=== PATIENT | male | born 1965 | race Caucasian/White ===

== ENCOUNTER → 2017-02-09 | Outpatient (CLI) | payer OTHER ==
--- NOTE | ~2017-02-09 | MR11 ---
[facility] A Service of [facility] & [facility] RADIOLOGY TEXT RESULTS PATIENT: QUINN DAVIDSON LOCATION: [facility] : 69 UNIT #: [id number] AGE: [address]: Tk Lance MD SEX: M ORDER DR: [id number] [facility] [address] [place], [place] [address] [id number] O MR#: [id number] Acc #: [id number] NAME: QUINN DAVIDSON : 1965 SEX: M STUDY DATE/TIME: 02/09/2017 13:52 UNIT: [facility] ROOM: STUDY DESCRIPTION: MR Ankle Wo Contrast Rt Attending Physician: Niels Lance M.D. Referring Physician: Niels Lance M.D. Ordering Physician: Niels Lance M.D. Primary Care Physician: Deepak Gu M.D. MRI CENTER REPORT This report is preliminary unless electronic signature is present. EXAM MRI of the right ankle without contrast HISTORY 51-year-old male anterolateral ankle pain. Evaluate for talar dome lesion. COMPARISON Right ankle films 02/01/2017. FINDINGS Multiplanar, multiecho imaging was performed of the right ankle utilizing a high field magnet and dedicated protocol. There is a sizable focus of marrow edema within the medial talar dome with associated subchondral cystic changes. This measures approximately 1.2 x 0.8 x 0.8 cm in greatest transverse dimensions and is along the medial margin of the talar dome. 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 No evidence of an in situ fragment or loose body. No significant joint effusion. There is a small amount of subtalar joint fluid. Ankle tendons appear normal. Anterior talofibular ligament is attenuated and may represent the sequela of an old lateral ankle sprain. Intrinsic foot musculature appears normal. There is a small amount of cystic change and edema within the sinus tarsi, nonspecific. Tarsal tunnel and plantar fascia unremarkable. IMPRESSION 1. 1.2 x 0.8 x 0.8 cm osteochondral lesion along the medial aspect of the talar dome representing a combination of subchondral edema and cystic change. No evidence of an in situ fragment or loose body. 2. Moderate amount of nonspecific edema sinus tarsi. 3. Attenuation of the anterior talofibular ligament may represent the sequela of a chronic anterior talofibular ligament sprain. STS. [facility] A Service of [facility] RADIOLOGY TEXT RESULTS PATIENT: QUINN DAVIDSON LOCATION: [facility] : 69 UNIT #: [id number] AGE: [address]: Tk Lance MD SEX: M ORDER DR: Dictated by... Apoorva Sol M.D. THIS IS AN ELECTRONICALLY VERIFIED REPORT Apoorva Sol M.D. at 02/13/2017 9:02 AM JULIANE/cassi TD: 02/12/2017 12:39 JOB #: [id number] MRI CENTER REPORT Page 1 of 1 COPY
== END | disposition home or self-care (01) ==
LOC: CMRI 13:27
DX: M25.571 Pain in right ankle and joints of right foot (principal); M25.871 Other specified joint disorders, right ankle and foot; R60.0 Localized edema
CPT/HCPCS: 73721